=== PATIENT | male | born 2000 | race Caucasian/White ===

== ENCOUNTER 2024-07-05 21:11 | Emergency (ER) | payer SELFPAY ==
--- NOTE | 2024-07-05 21:12 | ECG_ITS ---
APPROVED REPORT Exam: Resting ECG HR:96 bpm ECG Measurements Heart Rate 96 AXES NH 144 P 72 QRSd 97 QRS 81 QT 328 T 75 QTc 382 Conclusion SINUS RHYTHM POSSIBLE LEFT ATRIAL ENLARGEMENT [-0.1mV P-WAVE IN V1/V2] BORDERLINE ECG UNCONFIRMED REPORT Electronically signed by : ANNABELLE SMITH, 07/08/2024 06:54:08
[2024-07-05 21:13] VITALS: BP 147/97; PULSE 92; RESP 32; TEMP 37.4; O2SAT 98; BMI 25.7
--- NOTE | 2024-07-05 21:13 | XR_ITS ---
PROCEDURE INFORMATION: Exam: XR Chest Exam date and time: 07/05/2024 9:37 PM Age: 23 years old Clinical indication: Pain; Chest pressure; Additional info: Chest pain TECHNIQUE: Imaging protocol: Radiologic exam of the chest. Views: 1 view. COMPARISON: No relevant prior studies available. FINDINGS: Lungs: Unremarkable. No consolidation. Pleural spaces: Unremarkable. No pleural effusion. No pneumothorax. Heart/Mediastinum: Unremarkable. No cardiomegaly. Bones/joints: Unremarkable. IMPRESSION: No acute findings.
[2024-07-05 21:30] VITALS: BP 148/105; PULSE 85; RESP 22; O2SAT 97
[2024-07-05] MEDS: KETOROLAC 30MG/ML VIAL 15 MG IV (21:33)
[2024-07-05] MEDS: BELLADONNA ALKALOIDS 60 ML ML PO (21:34)
[2024-07-05 21:37] LABS: Albumin Level 5.8 g/dl (3.5-5.0); Chloride 103 mmol/L (98-107); Potassium 3.6 mmoL/L (3.5-5.1); Sodium 139 mmol/L (136-145)
[2024-07-05 21:39] LABS: Blood Urea Nitrogen 18 mg/dl (9-20); Creatinine Clearance Estimated 130 mL/min (50-200); Estimated Glomerular Filt Rate 82 ml/min (>60); GFR (African American) 100 ML/MIN (>60)
[2024-07-05 21:40] LABS: Alanine Aminotransferase 29 U/L (12-78); Albumin/Globulin Ratio 1.7 (1.1-1.8); Alkaline Phosphatase 112 U/L (38-126); Anion Gap 15.6 mEq/L (5-15); Aspartate Amino Transferase 36 U/L (17-59); Bilirubin,Total 0.9 mg/dl (0.2-1.3); Calcium 10.6 mg/dl (8.4-10.2); Carbon Dioxide 24 mmol/L (22.0-30.0); Globulin 3.4 g/dL (1.3-3.2); Glucose 116 mg/dl (74-100); Lipase 72 U/L (23-300); Total Protein,Serum 9.2 g/dl (6.3-8.2)
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
[2024-07-05 21:57] LABS: Troponin I < 0.01 ng/ml (0.00-0.034)
[2024-07-05 22:04] LABS: Basophils # 0.1 K/mm3 (0-0.2); Basophils % 0.8 % (0.1-2.0); Eosinophils # 0.1 Kmm3 (0.0-0.4); Eosinophils % 0.7 % (0.1-12.0); Hematocrit 51.5 % (42.0-52.0); Immature Granulocytes # 0.05 10^3uL; Immature Granulocytes % 0.5 %; Lymphocytes # 3.7 K/mm3 (0.7-4.5); Lymphocytes % 33.6 % (10-50); Mean Corpuscular HGB Conc 36.9 g/dL (31.8-35.4); Mean Corpuscular Hemoglobin 30.3 pg (27.0-31.2); Mean Platelet Volume 9.6 fl (7.4-10.4); Monocytes # 0.9 K/mm3 (0.1-1.0); Monocytes % 7.8 % (1.7-9.3); Neutrophils # 6.3 K/mm3 (1.8-7.8); Neutrophils % 56.6 % (37.0-80.0); Nucleated Red Blood Cells # 0 10^3/uL; Nucleated Red Blood Cells % 0 %; Platelet Count 369 K/mm3 (142-424); Red Blood Count 6.28 M/mm3 (4.60-6.20); Red Cell Distribution Width 12.1 % (11.5-17.5); Red Cell Distribution Width-SD 36.2 fL; White Blood Count 11.1 K/mm3 (4.8-10.8)
[2024-07-05 22:24] LABS: HIV Combo NEGATIVE (Negative)
[2024-07-05 22:28] LABS: Hepatitis C Ab Qual. W/ RFX NEGATIVE (Negative)
[2024-07-05 22:37] VITALS: BP 163/94; PULSE 61; PULSE 63; RESP 13; TEMP 36.6; O2SAT 98
== END 2024-07-05 22:45 | disposition home or self-care (01) ==
PROVIDERS: Emergency Provider Emergency Medicine; PCP Family Medicine
DX: R07.9 Chest pain, unspecified (principal); R06.4 Hyperventilation; F17.210 Nicotine dependence, cigarettes, uncomplicated; Q07.8 Other specified congenital malformations of nervous system; Z11.59 Encounter for screening for other viral diseases; Z11.4 Encounter for screening for human immunodeficiency virus [HIV]
CPT/HCPCS: 71045; 80053; 83690; 84484; 85025; 86803; 87389; 93005; 96374; 99284; J1885